=== PATIENT | female | born 1985 | race African-American/Black ===

== ENCOUNTER 2017-01-30 06:37 | Emergency (ER) | payer BC, MEDICAID ==
[2017-01-30 06:50] VITALS: BP 124/86
[2017-01-30] MEDS ORDERED: Ketorolac 60 MG/2 ML SDV IM ONE (07:04)
--- NOTE | 2017-01-30 07:11 | EDM.PDOC ---
ED HPI LOWER BACK PAIN/INJURY - General Chief Complaint: Back Pain or Injury Stated Complaint: BACK PROBLEMS Time Seen by Provider: 01/30/17 07:00 Source of Information: Reports: Patient History Limitations: Reports: No limitations - History of Present Illness INITIAL COMMENTS - FREE TEXT/NARRATIVE: Has been having some low back pain on and off for the last 3 days. Was fine when she went to work tonight but during the night she started to have low back pain that would go across her low back in spasms. At times it would make her lightheaded. No radiation of the pain down her legs or up to the top of her back. No injury that she knows of. "I think it is from my bed". No previous back problems. Timing/Duration: Reports: Day(s): (3) Location: Reports: lower. Denies: radiating pain Quality: Reports: Sharp, Stabbing Severity: severe - Related Data Allergies/ADRs: Allergies Allergy/AdvReac Type Severity Reaction Status Date / Time No Known Allergies Allergy Verified 01/30/17 06:42 Home Meds: Home Meds Aspirin/Caffeine [Bc Powder Packet] 1 packet PO DAILY PRN 12/14/14 [History] Past Medical History - Past Health History Medical/Surgical History: Denies Medical/Surgical History Psychiatric History: Reports: Anxiety, Depression Dermatologic History: Reports: Eczema - Past Surgical History Female Surgical History: Reports: D&C Social & Family History - Tobacco Use Smoking Status *Q: Former Smoker Years of Tobacco use: 2 Used Tobacco, but Quit: Yes Month Tobacco Last Used: 2009 Second Hand Smoke Exposure: Yes - Alcohol Use Days Per Week of Alcohol Use: 4 Number of Drinks Per Day: 3 Total Drinks Per Week: 12 - Recreational Drug Use Recreational Drug Use: No ED ROS GENERAL - Review of Systems Review Of Systems: See Below Constitutional: Reports: no symptoms Musculoskeletal: Reports: back pain ED EXAM,LOWER BACK PAIN/INJURY - Physical Exam Exam: See Below Exam Limited By: No limitations General Appearance: alert, moderate distress Back Exam: normal inspection, muscle spasm (When moving or changing position spasms become worse. No increase in pain with seated leg lifts. No decrease in strength to the legs.) Neurological: alert Skin Exam: Warm, Dry Course - Vital Signs Last Recorded V/S: Last Vital Signs Temp 98.9 F 01/30/17 06:43 Pulse 99 01/30/17 06:43 Resp 16 01/30/17 06:43 BP 124/86 01/30/17 06:43 Pulse Ox 97 01/30/17 06:43 - Orders/Labs/Meds Orders: Active Orders 24 hr Category Date Time Status Ketorolac [Toradol] Med 01/30/17 07:04 Once 60 mg IM ONETIME ONE Orphenadrine [Norflex] Med 01/30/17 07:04 Stat 60 mg IM NOW STA Departure - Departure Time of Disposition: 07:12 Disposition: Home, Self-Care 01 Condition: good Clinical Impression: Muscle spasm of back Instructions: Muscle Strain, [id number], Back Pain, Adult, [id number] Forms: ED Department Discharge Additional Instructions: Flexeril 10 mg twice a day for muscle spasm Mobic 15 mg daily for the next 2 weeks Tramadol 50 mg take 1 tab every 4 hours for pain as needed. If you are able to go to physical therapy then call clinic [phone] and I will set that up for you. Heating pad to back to help with the pain. - Problem List & Annotations (1) Morbid obesity SNOMED Code(s): 314377727 Code(s): E66.01 - MORBID (SEVERE) OBESITY DUE TO EXCESS CALORIES Status: Chronic Priority: Low Current Visit: No (2) Muscle spasm of back SNOMED Code(s): 722395618 Code(s): M62.830 - MUSCLE SPASM OF BACK Status: Acute Priority: High Current Visit: Yes - Problem List Review Problem List Initiated/Reviewed/Updated: Yes - My Orders Last 24 Hours: My Active Orders 01/30/17 07:04 Ketorolac [Toradol] 60 mg IM ONETIME ONE Orphenadrine [Norflex] 60 mg IM NOW STA - Assessment/Plan Last 24 Hours: My Active Orders 01/30/17 07:04 Ketorolac [Toradol] 60 mg IM ONETIME ONE Orphenadrine [Norflex] 60 mg IM NOW STA
== END 2017-01-30 07:34 | disposition home or self-care (01) ==
LOC: CC.ED 06:37
DX: M62.830 Muscle spasm of back (principal); F41.9 Anxiety disorder, unspecified; F32.9 Major depressive disorder, single episode, unspecified; Z87.891 Personal history of nicotine dependence; Z79.82 Long term (current) use of aspirin
CPT/HCPCS: 96372; 99282; J1885; J2360

== ENCOUNTER 2017-05-28 17:22 | Emergency (ER) | payer BC, MEDICAID ==
[2017-05-28] MEDS ORDERED: cefTRIAXone 1 GM Vial IM ONE (18:23)
[2017-05-28] MEDS ORDERED: methylPREDNISolone Sodium Succinate 125 MG/2 ML SDV IM ONE (18:25)
[2017-05-28] MEDS ORDERED: Lidocaine 1% 20 ML MDV INJECT ONE (18:29)
--- NOTE | 2017-05-28 18:33 | EDM.PDOC ---
ED HPI GENERAL MEDICAL PROBLEM - General Chief Complaint: ENT Problem Stated Complaint: SORE THROAD/BODY ACHES Time Seen by Provider: 05/28/17 18:00 Source of Information: Reports: Patient History Limitations: Reports: No Limitations - History of Present Illness INITIAL COMMENTS - FREE TEXT/NARRATIVE: Lonnie is a 32 yo female who presents to the ER with complaints of a sore throat. States symptoms started a few days ago and has progressively gotten worse. Admits she tried to just push it off and thought it would get better. States now she has body aches with it as well. Hasn't taken anything for the sore throat. Onset Date: 05/26/17 Duration: Getting Worse Location: Reports: Neck Associated Symptoms: Reports: Fever/Chills, Malaise. Denies: Chest Pain, Cough , cough w sputum, Nausea/Vomiting, Rash, Shortness of Breath Bilateral Throat Pain Score (Numeric/FACES): 6 - Related Data Allergies Allergy/AdvReac Type Severity Reaction Status Date / Time No Known Allergies Allergy Verified 05/28/17 17:25 Home Meds: Home Meds Aspirin/Caffeine [Bc Powder Packet] 1 packet PO DAILY PRN 12/14/14 [History] Amoxicillin 875 mg PO BID #20 tab 05/28/17 [Rx] Past Medical History - Past Health History Medical/Surgical History: Denies Medical/Surgical History [employer] History: Reports: Psychiatric History: Reports: Anxiety, Depression Dermatologic History: Reports: Eczema - Past Surgical History Female Surgical History: Reports: D&C Social & Family History - Tobacco Use Smoking Status *Q: Never Smoker Years of Tobacco use: 2 Used Tobacco, but Quit: Yes Month Tobacco Last Used: 2009 Second Hand Smoke Exposure: Yes - Alcohol Use Days Per Week of Alcohol Use: 4 Number of Drinks Per Day: 3 Total Drinks Per Week: 12 - Recreational Drug Use Recreational Drug Use: No ED ROS ENT - Review of Systems Review Of Systems: See Below Constitutional: Reports: Fever, Chills, Malaise, Decreased Appetite HEENT: Reports: Ear Pain (right ear garcia initially, no current ear pain), Throat Pain, Throat Swelling Respiratory: Denies: Shortness of Breath, Wheezing, Cough Cardiovascular: Reports: Blood Pressure Problem. Denies: Chest Pain GI/Abdominal: Reports: No Symptoms. Denies: Abdominal Pain, Bloody Stool, Constipation, Diarrhea, Nausea, Vomiting : Reports: No Symptoms Musculoskeletal: Reports: Other (body aches) Skin: Reports: No Symptoms Neurological: Reports: No Symptoms Psychiatric: Reports: No Symptoms ED EXAM, ENT - Physical Exam Exam: See Below Exam Limited By: No Limitations General Appearance: Alert, Mild Distress, Obese Ears: Normal External Exam, Normal Canal, Hearing Grossly Normal, Normal TMs Nose: Normal Inspection, Normal Mucousa, No Blood Mouth/Throat: Tonsillar Erythema, Tonsillar Exudates, Tonsillar Swelling. No: Muffled Voice, Oral Ulcers, Peritonsillar Mass, Pharyngeal Erythema, Throat Pain , Throat Swelling, Trismus, Uvular Deviation Neck: Normal Inspection, Supple, Non-Tender, Full Range of Motion. No: Lymphadenopathy (L), Lymphadenopathy (R) Respiratory/Chest: No Respiratory Distress, Lungs Clear, Normal Breath Sounds, No Accessory Muscle Use Cardiovascular: Regular Rate, Rhythm, No Murmur GI/Abdominal: Soft, Non-Tender, No Organomegaly, No Distention Neurological: Alert, Oriented, Normal Cognition Psychiatric: Normal Affect, Normal Mood Skin: Warm, Dry, Intact, Normal Color, No Rash Lymphatic: No Adenopathy Course - Vital Signs Last Recorded V/S: Last Vital Signs Temp 98.7 F 05/28/17 17:28 Pulse 96 05/28/17 17:28 Resp 18 05/28/17 17:28 BP 155/117 H 05/28/17 17:28 Pulse Ox 97 05/28/17 17:28 - Orders/Labs/Meds Labs: Laboratory Tests 05/28/17 05/28/17 Range/Units 18:00 18:00 WBC 9.5 (5.0-10.0) 10^3/uL RBC 5.47 (4.00-5.50) 10^6/uL Hgb 13.6 (12.0-16.0) g/dL Hct 43.0 (37.0-47.0) % MCV 78.6 L (82.0-94.0) fL MCH 24.9 L (27.0-32.0) pg MCHC 31.6 L (33.0-38.0) g/dL RDW Coeff of Estela 15.0 (11.0-15.0) % Plt Count 298 (150-400) 10^3/uL Neut % (Auto) 55.9 (35-85) % Lymph % (Auto) 29.2 (10-55) % Montgomery % (Auto) 12.7 (0-16) % Eos % (Auto) 1.9 (0-5) % Baso % (Auto) 0.3 (0-3) % Neut # (Auto) 5.31 (1.80-7.00) 10^3/uL Lymph # (Auto) 2.77 (1.00-4.80) 10^3/uL Montgomery # (Auto) 1.21 H (0.00-0.80) 10^3/uL Eos # (Auto) 0.18 (0.00-0.45) 10^3/uL Baso # (Auto) 0.03 10^3/uL Monoscreen Negative Meds: Medications Discontinued Medications Generic Name Dose Route Start Last Admin Trade Name Jose Robertoq PRN Reason Stop Dose Admin Ceftriaxone Sodium 2 gm 05/28/17 18:23 05/28/17 18:34 Rocephin IM 05/28/17 18:24 2 gm ONETIME ONE Administration Lidocaine HCl 20 ml 05/28/17 18:29 05/28/17 18:37 Xylocaine 1% INJECT 05/28/17 18:30 20 ml ONETIME ONE Administration Methylprednisolone Sodium Succinate 125 mg 05/28/17 18:25 05/28/17 18:37 Solu-Medrol IM 05/28/17 18:26 125 mg ONETIME ONE Administration Departure - Departure Time of Disposition: 18:45 Disposition: Home, Self-Care 01 Clinical Impression: Strep tonsillitis, Elevated blood pressure reading - Discharge Information Prescriptions: Amoxicillin 875 mg PO BID #20 tab Instructions: Strep Throat, Tonsillitis, [id number] Referrals: U [Other] Forms: ED Department Discharge Additional Instructions: 1) Rest 2) Push fluids 3) Recommend taking 500mg of Tylenol with 600mg of ibuprofen every 6 hours as needed for discomfort/swelling 4) Amoxicillin 875mg twice a day for 10 days, 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 5) If increase in fevers, discomfort, difficulty swallowing or anything Dr. Saez discussed tonight, recommend returning to ER. 6) Recommend calling into clinic in the morning and being seen for recheck of tonsills and blood pressure. - Problem List & Annotations (1) Strep tonsillitis SNOMED Code(s): 17702019 Code(s): J03.00 - ACUTE STREPTOCOCCAL TONSILLITIS, UNSPECIFIED Status: Acute Current Visit: Yes (2) Elevated blood pressure reading SNOMED Code(s): 44170751 Code(s): R03.0 - ELEVATED BLOOD-PRESSURE READING, W/O DIAGNOSIS OF HTN Status: Acute Current Visit: Yes - Problem List Review Problem List Initiated/Reviewed/Updated: Yes - Assessment/Plan Plan: Dr. Saez consulted and evaluated Lonnie mancuso. No sign of peritonsillar abscess seen. 2 grams of Rocephin was given intramuscularly with 125 mg of Solu Medrol. Discussed intravenous fluids; however, Lonnie felt she could get plenty of fluids orally. We will discharge at this time with recommendation to return to clinic tomorrow for recheck. Initial blood pressure reading was quite elevated using small cuff with the machine. Repeat blood pressure reading via manual was cuff was 142/82.
[2017-05-28 18:56] VITALS: BP 142/82
== END 2017-05-28 19:00 | disposition home or self-care (01) ==
LOC: CC.ED 17:22
DX: J03.00 Acute streptococcal tonsillitis, unspecified (principal); R03.0 Elevated blood-pressure reading, without diagnosis of hypertension; Z79.82 Long term (current) use of aspirin
CPT/HCPCS: 36415; 85025; 86308; 87430; 99282; J0696; J2930; 96372